=== PATIENT | female | born 1990 | race Caucasian/White ===

== ENCOUNTER → 2016-12-30 | Outpatient (CLI) | payer MEDICAID | END | disposition home or self-care (01) | LOC: RAD.S 11:00 | DX: Z36 Encounter for antenatal screening of mother (principal); Z3A.20 20 weeks gestation of pregnancy ==

== ENCOUNTER 2017-04-01 09:20 | Outpatient (CLI) | payer MEDICAID ==
[~2017-04-01] VITALS: Ht 154.9 cm; Wt 72.6 kg
== END 2017-04-01 11:25 | disposition home or self-care (01) ==
LOC: BC 09:20 → 2LDRP 09:20 → EDSTATUS 10:17 → BC 11:25
DX: O47.03 False labor before 37 completed weeks of gestation, third trimester (principal); Z3A.33 33 weeks gestation of pregnancy